=== PATIENT | female | born 1935 | race Caucasian/White ===

== ENCOUNTER 2016-12-06 11:21 | Emergency (ER) | payer MEDICARE, MEDICAID ==
[2016-12-06 13:21] VITALS: BP 139/70
[2016-12-06] MEDS ORDERED: Ibuprofen TAB* 600 MG PO ONE (14:11)
--- NOTE | 2016-12-06 14:25 | UC ---
Hand/Wrist HPI - HPI Summary HPI Summary: NURSE NOTE:pt has dementia, last night she became upset because of loosing the TV remote and punched a door with right hand and sustained a laceration. pt also has a swollen, painfull left wrist. not able to acertain how or why. pt has a hx of a temper when frustrated. HPI: 81 female presents complaining of right hand pain and laceration after punching a wall last night around 7pm 12/05/16. She state she has a temper and got mad that she lost the TV remote. She has had pain in the right hand since the injury. Pt has dementia and temper history. Accompanied by 2 friends/ caretakers. Last night the avulsion was wrapped with gauze and antibiotic/ analgesic ointment was applied. She has not taken any medication for the pain/ swelling. Admits to swelling, redness and deformity. She also states she has pain in her left wrist that has been bothering her however she noticed swelling and erythema that started this morning. She can not recall how it happened or why it hurts. She denies numbness, tingling of both wrists/hands. Denies elbow and shoulder pain trauma. Did not hit her head or fall. Denies difficulty breathing and chest pain. - History Of Current Complaint Chief Complaint: UCTrauma Stated Complaint: HAND COMPLAINT Time Seen by Provider: 12/06/16 14:00 Hx Obtained From: Patient, Family/Weigher Production ?: No Mechanism Of Injury: punching a wall Onset/Duration: Sudden Onset Severity Initially: Moderate Severity Currently: Moderate Pain Intensity: 7 Pain Scale Used: 0-10 Numeric Character Of Pain: Aching, Throbbing, Stiffness Aggravating Factor(s): Movement Alleviating: Nothing Associated Signs And Symptoms: Positive: Swelling, Redness, Bruising. Negative : Numbness/Tingling Related History: Dominant Hand Right - Allergies/Home Medications Allergies/Adverse Reactions: Allergies Allergy/AdvReac Type Severity Reaction Status Date / Time No Known Allergies Allergy Verified 12/06/16 12:00 Home Medications: Home Medications Sertraline* [Zoloft*] 25 mg PO DAILY 12/06/16 [History Confirmed 12/06/16] PMH/Surg Hx/FS Hx/Imm Hx Endocrine History Of: Reports: Diabetes Cardiovascular History Of: Reports: Cardiac Disorders - cardimyopathy/ischemic heart disease/aortic valve disorder, Hypertension, Pacemaker/ICD Denies: Congestive Heart Failure GI/ History Of: Reports: Gall Bladder Disease Denies: Renal Disease Neurological History Of: Reports: Dementia - Surgical History Surgical History: Yes Surgery Procedure, Year, and Place: aortic valve; FACIAL SURGURY-29 YRS AGO. pacemaker - Family History Known Family History: Positive: Unknown - Social History Alcohol Use: None Substance Use Type: None Smoking Status (MU): Never Smoked Tobacco - Immunization History Most Recent Influenza Vaccination: never Most Recent Tetanus Shot: unk Most Recent Pneumonia Vaccination: never Review of Systems Constitutional: Negative Skin: Other - laceration/avulsion of right dorsal hand Eyes: Negative ENT: Negative Respiratory: Negative Cardiovascular: Negative Gastrointestinal: Negative Genitourinary: Negative Motor: Decreased ROM Neurovascular: Negative Musculoskeletal: Arthralgia, Decreased ROM - both left wrist and right hand at 4 /5th PIP joint., Edema, Myalgia All Other Systems Reviewed And Are Negative: Yes Physical Exam Triage Information Reviewed: Yes Appearance: Well-Appearing, No Pain Distress, Well-Nourished Vital Signs: Initial Vital Signs Temp 97.5 F 12/06/16 11:53 Pulse 68 12/06/16 11:53 Resp 18 12/06/16 11:53 BP 122/66 12/06/16 11:53 Pulse Ox 98 12/06/16 11:53 Vital Signs Reviewed: Yes Eyes: Positive: Conjunctiva Clear ENT Exam: Normal Dental Exam: Normal Neck: Positive: Supple, Nontender, No Lymphadenopathy Respiratory: Positive: Chest non-tender, Lungs clear, Normal breath sounds, No respiratory distress Cardiovascular: Positive: RRR - pacemaker present, No Murmur, Pulses Normal, Brisk Capillary Refill - b/l <2 seconds Abdominal Exam: Normal Musculoskeletal: Positive: Strength Limited @ - due to pain of right hand and left wrist. 3/5, ROM Limited @ - slight limitations with movement of right 4th and 5th digit. Normal ROM of right wrist and hand. Slight limitation with flexion/extension and internal/external rotation of left wrist due to pain., Edema @ - 4th/5th digit of right hand, left wrist edema and erythema. tenderness on palpation of medial ulnar side of left wrist and tender on palpation of right 4th/5th digit of PIP and hand. Sensation and circulation intact. No forearm or elbow tenderness on palpation. No step-off, crepitus or deformity noted. Neurological Exam: Normal - reflexes intact. Psychological Exam: Normal Skin: Positive: Other - ~4cm avulsion skin flap noted on right 4/5th PIP joints on dorsal side of hand. No FB noted. minimal bleeding, well approximated v- shape. ecchymosis noted on right 4/5th digits none on left wrist. Procedures - Laceration/Wound Repair 1 Location: Other - right dorsal hand 4/5th digit Description: Linear - v- shape, well approximated skin avulsion right dorsal hand Betadine Prep?: No Irrigated w/ Saline (ccs): 50 Laceration/Wound Explored: clean, no foreign body removed Closure: Skin Adhesive - xero-form 2x2", SteriStrips - 3 Sterile Dressing Applied?: Yes - wrapped with gauze, kerlex Diagnostics - Radiology right hand x-ray Xray Interpretation: No Acute Changes - 1. OSTEOPENIA. 2. BILATERAL OSTEOARTHRITIS. 3. NO ACUTE OSSEOUS INJURY. THE DEGREE OF OSTEOPENIA MAY MAKE A NONDISPLACED FRACTURE RADIOGRAPHICALLY OCCULT. IF SYMPTOMS PERSIST, RECOMMEND REPEAT IMAGING. Radiology Interpretation Completed By: Radiologist left hand x-ray Xray Interpretation: No Acute Changes - IMPRESSION: 1. OSTEOPENIA. 2. BILATERAL OSTEOARTHRITIS. 3. NO ACUTE OSSEOUS INJURY. THE DEGREE OF OSTEOPENIA MAY MAKE A NONDISPLACED FRACTURE RADIOGRAPHICALLY OCCULT. IF SYMPTOMS PERSIST, RECOMMEND REPEAT IMAGING. Radiology Interpretation Completed By: Radiologist Hand/Wrist Course/Dx - Course Course Of Treatment: x-rays of both hands/wrists were obtained to rule out any fractures. Both were negative for any acute injuries. Avulsion was cleaned, steri-strip and Xeroform applied and dressed with gauze/kerlex. Ibuprofen and ice given for pain and inflammation. Her last tetanus was in 2012 and does not need it updated at this time. Was instructed to keep dressing on for the next 24 hours and do not get it wet. was told they could change gauze/dressing but to leave steri strip and xeroform alone until follow up with PCP or it falls off on its own. Follow up en-couraged to further work up chronic left wrist pain and swelling. - Differential Dx/Diagnosis Differential Diagnosis/HQI/PQRI: Contusion, Dislocation, Foreign Body, Fracture , Sprain, Strain Provider Diagnoses: Contusion Right Hand, skin avulsion right hand Discharge - Discharge Plan Condition: Stable Disposition: HOME Patient Education Materials: Skin Avulsion (ED), Contusion in Adults (ED) Referrals: Charles Landeros MD [Primary Care Provider] - Additional Instructions: Take OTC Ibuprofen 200 or 400mg for the next day or so with food while symptoms persist. You may also ice and elevate the area. Follow up with your primary care doctor to have skin wound re-evaluated to ensure proper healing within the next 5-7 days and to have further work-up done for the your chronic left wrist pain. IF symptoms worsen or you develop signs of infection, fever, chills, increasing swelling, redness, numbness/tingling or loss of circulation please seek medical attention immediately. Keep dressing dry and clean. Do not change gauze until 28-48 hours. Leave yellow gauze (xero-form) and steri-strips on until they fall off or you primary care doctor removes them.
--- NOTE | 2016-12-06 14:47 | RAD ---
HISTORY: Right hand trauma, left wrist and hand pain and swelling COMPARISONS: None VIEWS: 8, Frontal, lateral, and oblique views of the left hand and of the right hand FINDINGS: Right: BONE DENSITY: There is diffuse osteopenia. BONES: There is no displaced fracture. JOINTS: There is moderate osteoarthritis of the interphalangeal joints. ALIGNMENT: There is no dislocation. The alignment is anatomic. SOFT TISSUES: Unremarkable. Left: BONE DENSITY: There is diffuse osteopenia. BONES: There is no displaced fracture. JOINTS: There is osteoarthritis most pronounced at the first second and third interphalangeal joints. ALIGNMENT: There is no dislocation. The alignment is anatomic. SOFT TISSUES: Unremarkable. OTHER FINDINGS: None. IMPRESSION: 1. OSTEOPENIA. 2. BILATERAL OSTEOARTHRITIS. 3. NO ACUTE OSSEOUS INJURY. THE DEGREE OF OSTEOPENIA MAY MAKE A NONDISPLACED FRACTURE RADIOGRAPHICALLY OCCULT. IF SYMPTOMS PERSIST, RECOMMEND REPEAT IMAGING.
== END 2016-12-06 15:31 | disposition home or self-care (01) ==
LOC: UCEAST 11:21
DX: S60.221A Contusion of right hand, initial encounter (principal); S61.411A Laceration without foreign body of right hand, initial encounter; W22.09XA Striking against other stationary object, initial encounter; Y93.9 Activity, unspecified; Y92.009 Unspecified place in unspecified non-institutional (private) residence as the place of occurrence of the external cause; M25.532 Pain in left wrist; I42.9 Cardiomyopathy, unspecified; I25.9 Chronic ischemic heart disease, unspecified; Z95.0 Presence of cardiac pacemaker
CPT/HCPCS: 99211; A9270-GY; G0463

== ENCOUNTER 2017-01-04 14:13 | Emergency (ER) | payer MEDICARE, MEDICAID ==
[2017-01-04 14:41] VITALS: BP 140/67
--- NOTE | 2017-01-04 15:11 | UC ---
Upper Extremity HPI - HPI Summary HPI Summary: Hit L arm against table last night, sustained small flap skin tear, approx 2cm x 2cm. Skin is in place, pt is brought by family members who are mainly concerned about the area getting cleaned out well and to document the injury. - History of Current Complaint Chief Complaint: UCLaceration Stated Complaint: WOUND TO ARM Time Seen by Provider: 01/04/17 14:57 Hx Obtained From: Patient Hx Last Menstrual Period: menapause ?: No Onset/Duration: Sudden Onset Severity Initially: Mild Severity Currently: Mild Character: Dull Alleviating Factor(s): Nothing Associated Signs And Symptoms: Positive: Redness - Allergies/Home Medications Allergies/Adverse Reactions: Allergies Allergy/AdvReac Type Severity Reaction Status Date / Time No Known Allergies Allergy Verified 12/06/16 12:00 PMH/Surg Hx/FS Hx/Imm Hx Endocrine History Of: Reports: Diabetes Cardiovascular History Of: Reports: Cardiac Disorders - cardimyopathy/ischemic heart disease/aortic valve disorder, Hypertension, Pacemaker/ICD Denies: Congestive Heart Failure GI/ History Of: Reports: Gall Bladder Disease Denies: Renal Disease Neurological History Of: Reports: Dementia - Surgical History Surgical History: Yes Surgery Procedure, Year, and Place: aortic valve; FACIAL SURGURY-29 YRS AGO, cabg. pacemaker - Family History Known Family History: Positive: Unknown - Social History Occupation: Retired Lives: Alone Alcohol Use: None Substance Use Type: None Smoking Status (MU): Never Smoked Tobacco - Immunization History Most Recent Influenza Vaccination: never Most Recent Tetanus Shot: 4 year ago Most Recent Pneumonia Vaccination: never Review of Systems Constitutional: Negative Skin: Other - skin tear L arm Eyes: Negative ENT: Negative Respiratory: Negative Cardiovascular: Negative Gastrointestinal: Negative Genitourinary: Negative Motor: Negative Neurovascular: Negative Musculoskeletal: Negative Neurological: Negative Psychological: Negative All Other Systems Reviewed And Are Negative: Yes Physical Exam Triage Information Reviewed: Yes Appearance: Well-Appearing, No Pain Distress, Well-Nourished Vital Signs: Initial Vital Signs Temp 97.1 F 01/04/17 14:27 Pulse 60 01/04/17 14:27 Resp 18 01/04/17 14:27 BP 140/67 01/04/17 14:27 Pulse Ox 99 01/04/17 14:27 Vital Signs Reviewed: Yes Eye Exam: Normal, Other - pupils constricted consistent with age Eyes: Positive: Conjunctiva Clear ENT Exam: Normal ENT: Positive: Normal ENT inspection, Hearing grossly normal, Pharynx normal, TMs normal Dental Exam: Normal Neck exam: Normal Neck: Positive: Supple, Nontender, No Lymphadenopathy Respiratory Exam: Normal Respiratory: Positive: Chest non-tender, Lungs clear, Normal breath sounds, No respiratory distress, No accessory muscle use Cardiovascular Exam: Normal Cardiovascular: Positive: RRR, No Murmur Musculoskeletal Exam: Normal Neurological Exam: Normal Psychological Exam: Normal Skin Exam: Other - 2cm x 2cm flap skin tear, skin well-approximated. ~1cm halo of surrounding erythema Upper Extremity Course/Dx - Differential Dx/Diagnosis Provider Diagnoses: abrasion L arm Discharge - Discharge Plan Condition: Stable Disposition: HOME Patient Education Materials: Skin Tear (ED) Referrals: Charles Landeros MD [Primary Care Provider] - If Needed Additional Instructions: Keep the area bandaged at all times until it is no longer sore and is not leaving any drainage on your bandages. Apply a thin layer of vaseline or antibiotic ointment under a bandage, followed by rolled gauze. Change your bandage every other day.
== END 2017-01-04 15:27 | disposition home or self-care (01) ==
LOC: UCEAST 14:13
DX: S40.812A Abrasion of left upper arm, initial encounter (principal); W22.03XA Walked into furniture, initial encounter; Y93.9 Activity, unspecified; Y92.9 Unspecified place or not applicable
CPT/HCPCS: 99212; G0463

== ENCOUNTER 2017-01-20 12:57 | Emergency (ER) | payer MEDICARE, MEDICAID ==
[2017-01-20 13:25] VITALS: BP 135/66
--- NOTE | 2017-01-20 15:32 | UC ---
Liz Dash Rebecca, scribed for Karen Lerma MD on 01/20/17 at 1415 . Head Injury HPI - HPI Summary HPI Summary: Pt is a 81 y/o F who present to [facility] s/p fall last night and LOC. Unclear if the LOC resulted in the fall or if the fall resulted in LOC. Partner heard a crash in the bedroom last night approx 19:30. Tried to get to the pt, but couldn't b/c she was in the way of the door. After a few minutes the door opened. Spontaneously regained loc, but length of time out is unclear. Did not want to seek medical attention last night. Pt's partner drove her to her daughter's house today, and daughter convinced her to get checked. 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 Mental status similar to baseline, "head nod" have worsened and that she was "ulloa around the mouth". Daughter notes swelling on head and additionally notes a contusion to the pt's back. Pain level unclear. Daughter confirms it is normal for pt to be unsure of the date, time. - History Of Current Complaint Chief Complaint: UCHeadInjury Stated Complaint: FELL-HIT HEAD Time Seen by Provider: 01/20/17 14:11 Hx Obtained From: Patient, Family/[employer] - Daughter Hx Last Menstrual Period: menapause Onset/Duration: Sudden Onset Severity Currently: None Pain Intensity: 0 Pain Scale Used: 0-10 Numeric Associated Signs And Symptoms: Positive: LOC Duration Unknown, Other - worsened ataxia and "head nod"; "ulloa around the mouth"; contusion to the back - Allergies/Home Medications Allergies/Adverse Reactions: Allergies Allergy/AdvReac Type Severity Reaction Status Date / Time No Known Allergies Allergy Verified 01/20/17 15:10 PMH/Surg Hx/FS Hx/Imm Hx Previously Healthy: No - hx sycope / presyncope w/u February 2016. Denies dm. + hx hyperglycemia. Endocrine History Of: Comment Only: Diabetes - hypogylcemia Cardiovascular History Of: Reports: Cardiac Disorders - cardiomyopathy/ischemic heart disease/aortic valve disorder, Hypertension, Pacemaker/ICD Denies: Congestive Heart Failure GI/ History Of: Reports: Gall Bladder Disease Denies: Renal Disease Neurological History Of: Reports: Dementia - Surgical History Surgical History: Yes Surgery Procedure, Year, and Place: aortic valve; FACIAL SURGURY-29 YRS AGO, cabg. pacemaker - Family History Known Family History: Positive: Hypertension - Social History Alcohol Use: None Substance Use Type: None Smoking Status (MU): Never Smoked Tobacco - Immunization History Most Recent Influenza Vaccination: never Most Recent Tetanus Shot: 4 year ago Most Recent Pneumonia Vaccination: never Review of Systems Constitutional: Negative Skin: Other - see hpi Eyes: Negative ENT: Negative Respiratory: Negative Cardiovascular: Negative Gastrointestinal: Negative Genitourinary: Negative Motor: Negative Neurovascular: Negative Musculoskeletal: Negative Neurological: Other - Worsened ataxia and "head nod," positive LOC Psychological: Negative All Other Systems Reviewed And Are Negative: Yes Physical Exam Triage Information Reviewed: Yes Appearance: Well-Nourished - sitting up in chair, conversing easily. Vital Signs: Initial Vital Signs Temp 96.9 F 01/20/17 13:16 Pulse 64 01/20/17 13:16 Resp 16 01/20/17 13:16 BP 135/66 01/20/17 13:16 Pulse Ox 99 01/20/17 13:16 Vital Signs Reviewed: Yes Eye Exam: Normal - perrla eomi grossly intact. + bilat arcus senilus ENT Exam: Normal Neck: Positive: Supple - supple for age. + arthritic changes, Nontender Respiratory Exam: Normal Respiratory: Positive: Chest non-tender, Lungs clear, Normal breath sounds, No respiratory distress, No accessory muscle use Cardiovascular Exam: Normal Cardiovascular: Positive: RRR, No Murmur, Pulses Normal, Brisk Capillary Refill Abdominal Exam: Normal Abdomen Description: Positive: Nontender, No Organomegaly, Soft Bowel Sounds: Positive: Present Musculoskeletal Exam: Normal Musculoskeletal: Positive: Other: - Mild tenderness in the mid-thoracic region R post back contusion approx 6cm diam irregular. No crepitus. No cvat No hip tenderness to pressure. Able to stand up w/o pain c/o. Neurological Exam: Normal - Nonfocal, grossly intact Psychological Exam: Normal - COnversing easily and appropriately Ox person, place, partial time (normal per daughter), not oriented to / doesn't recall event. Skin: Positive: Other - Ecchymosis on the R posterior chest, about 6 cm diameter , irregularly shaped; 4 cm contusion and swelling in the L parietal area Head Injury Course/Dx - Course Course Of Treatment: No new problems in CCC. Bld glucose ok. To ED for further evaluation and management of LOC / head injury / back injury. Pt at first seems reluctant but then stood up and put on her coat and said let's go. Does not want to go to ED via ems, albeit this was offered and encouraged. EKG will be done in the ED, pt is ready to go. Spoke with Rosamaria Disla NP at ED. Pt and claudehter were given the opportunity to ask questions, to which I answered to the best of my ability. Daughter is driving to the ED. - Differential Dx/Diagnosis Provider Diagnoses: Head injury. Back injury. LOC / possible syncope Discharge - Discharge Plan Condition: Stable Disposition: TRANS HIGHER LVL OF CARE FAC Referrals: Charles Landeros MD [Primary Care Provider] - The documentation as recorded by the Liz nelson Rebecca accurately reflects the service I personally performed and the decisions made by me, Karen Lerma MD.
== END 2017-01-20 14:48 | disposition short-term general hospital (02) ==
LOC: UCEAST 12:57
DX: S06.9X9A Unspecified intracranial injury with loss of consciousness of unspecified duration, initial encounter (principal); S20.221A Contusion of right back wall of thorax, initial encounter; W18.30XA Fall on same level, unspecified, initial encounter; Y92.012 Bathroom of single-family (private) house as the place of occurrence of the external cause; I25.5 Ischemic cardiomyopathy; I10 Essential (primary) hypertension; Z95.810 Presence of automatic (implantable) cardiac defibrillator; Z95.2 Presence of prosthetic heart valve; K82.9 Disease of gallbladder, unspecified
CPT/HCPCS: 99202; G0463

== ENCOUNTER 2017-01-20 15:02 | Observation (INO) | payer MEDICARE, MEDICAID ==
[2017-01-20 15:51] LABS: Hematocrit 44 % (35-47); Hemoglobin 14.5 g/dl (12.0-16.0); Mean Corpuscular HGB Conc 33 g/dl (31-36); Mean Corpuscular Hemoglobin 30 pg (27-31); Mean Corpuscular Volume 91 fL (80-97); Mean Platelet Volume 9 um3 (7.4-10.4); Red Blood Count 4.83 10^6/ul (4.0-5.4); Red Cell Distribution Width 15 % (10.5-15); White Blood Count 8.8 10^3/ul (3.5-10.8)
[2017-01-20 16:03] LABS: Urine Bacteria 1+ (Absent); Urine Bilirubin Negative (Negative); Urine Glucose Negative (Negative); Urine Nitrite Negative (Negative)
[2017-01-20 16:07] LABS: ALT 7 U/L (7-52); Albumin 3.9 g/dL (3.2-5.2); Alkaline Phosphatase 70 U/L (34-104); BUN/Creatinine Ratio 17.7 (8-20); Blood Urea Nitrogen 11 mg/dL (6-24); CO2 Carbon Dioxide 25 mmol/L (22-32); Calcium 9.5 mg/dL (8.6-10.3); EGFR African American 119.4 (>60); EGFR Non-African American 92.9 (>60); Globulin 3.2 g/dL (2-4); Glucose 92 mg/dL (70-100); Total Protein 7.1 g/dL (6.4-8.9)
[2017-01-20 16:08] LABS: Troponin I 0.01 ng/mL (<0.04)
[2017-01-20 16:17] LABS: Chloride 106 mmol/L (101-111); Sodium 138 mmol/L (133-145)
[2017-01-20] MEDS ORDERED: cefTRIAXone(*) 1 GM in NS 0.9% 50 ML* 50 ML IVPB ONE (16:43)
[2017-01-20 16:54] LABS: TSH (Thyroid Stimulating Horm) 0.68 mcIU/mL (0.34-5.60)
[2017-01-20 17:08] LABS: Magnesium 2.4 mg/dL (1.9-2.7)
[2017-01-20] MEDS ORDERED: Ondansetron INJ* 2 MG/ML VIAL IV PRN (17:21)
[2017-01-20] MEDS ORDERED: Acetaminophen TAB* 325 MG PO PRN (17:21)
[2017-01-20] MEDS ORDERED: Potassium Chloride LIQUID* 20 MEQ PACKET PO ONE (17:32)
--- NOTE | 2017-01-20 17:44 | RAD ---
INDICATION: Syncope and right shoulder pain after a fall COMPARISON: Chest x-ray dated January 14, 2015 TECHNIQUE: Single AP view of the chest and 3 views of the right shoulder was obtained. FINDINGS: Unchanged from the previous x-rays is a right upper chest to lead cardiac pacemaker and sternotomy wires overlying the mediastinum. There is mild cardiomegaly to a similar degree as the previous chest x-ray. There is coarse atherosclerotic calcification overlying the arch of the aorta. The lungs are grossly clear. There is no evidence of a large pleural effusion. Mild degenerative changes of the right shoulder include narrowing of the glenohumeral joint as well as narrowing of the acromioclavicular joint with marginal osteophyte formation. IMPRESSION: 1. No radiographic evidence for acute cardiopulmonary abnormality on this single AP view chest x-ray. 2. Mild degenerative changes of the right shoulder without acute fracture or dislocation.
--- NOTE | 2017-01-20 17:50 | RAD ---
INDICATION: Syncope COMPARISON: Most recent comparison head CT is dated May 19, 2016 TECHNIQUE: Contiguous axial sections of the brain were obtained from the skull base to the vertex without contrast. FINDINGS: On the lateral view garage door hanger image there is lucency overlying the anterior mandible with a sclerotic rim. The ventricles, cisterns and sulci exhibit symmetrical involutional changes similar in appearance to the previous head CT. There is mild periventricular and subcortical white matter hypoattenuation most consistent with chronic microvascular disease. The dyson-white matter differentiation is adequately maintained and there is no sulcal effacement. No significant focal abnormality or mass effect is present. There is no evidence for intracranial hemorrhage. There is coarse calcified atherosclerosis at the bilateral petrous carotid arteries and vertebral arteries. No significant focal osseous abnormality is present. The visualized portion of the paranasal sinuses and mastoid air cells appear clear. IMPRESSION: 1. Stable chronic findings include involutional changes and evidence of chronic vascular disease. No CT evidence of acute intracranial abnormality. 2. On the lateral garage door hanger image there is a lucent lesion at the anterior mandible with a sclerotic rim. The patient's for prior head CTs, this portion of the mandible out of the field of view so I cannot comment on chronicity. Please correlate to physical examination. On a nonemergent basis this could be independently imaged.
--- NOTE | 2017-01-20 21:12 | HP ---
HISTORY AND PHYSICAL: DATE OF ADMISSION: 01/20/17 PRIMARY CARE PROVIDER: Dr. Landeros. ATTENDING PHYSICIAN WHILE IN THE HOSPITAL: Dr. Haydee Wolfe * (report dictated by Meño Sandoval NP). CHIEF COMPLAINT: 1. Syncope. 2. Fall. HISTORY OF PRESENT ILLNESS: Ms. Quijano is a 81-year-old female patient who has a history of dementia, PTSD, anxiety, depression, and atrial fibrillation, not on anticoagulation. She comes in today stating that last night she was fixing her room, moving her bed, and then suddenly she had an episode where she fainted. She landed next to the door. Her partner who was downstairs heard a thud, came to her aid, found that she was pinned up against the door. She finally made her way into the room. The patient had come to by then and knew where she was, recognized her partner. The patient was put back into bed and she slept throughout the night. The partner checked on her frequently throughout the night. The patient said that she did not have any chest pain or shortness of breath prior to or after the fall. There have been no recent changes in medications. She only takes Zoloft. The patient denies having any recent chills, fevers, abdominal pain, or any dysuria or frequency. There has not been any seizure-like activity as well. The significant other was concerned. They went to their friend's house today, and when the patient was walking up the steps, they noted that her gait was very off and she was very, in their words, wobbly. In addition to this, it was also noted that she appeared to be short of breath. They convinced the patient to go to the urgent care, who then referred the patient to the emergency room. The patient says now she feels well. She denies feeling dizzy. There were no reports of slurred speech, facial droop, or any weakness to one side. She was evaluated in the ER. It was found that she had UTI and because of the syncopal episode, the hospitalist service was asked to evaluate for admission. PAST MEDICAL HISTORY: Significant for: 1. Dementia. 2. PTSD. 3. Anxiety. 4. Depression. 5. Atrial fibrillation. PAST SURGICAL HISTORY: 1. 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 2. She has had a pacemaker placed. 3. Facial surgery. 4. Hysterectomy. HOME MEDICATIONS: Include Zoloft 25 mg daily. ALLERGIES TO MEDICATIONS: Include no known drug allergies. FAMILY HISTORY: Her mother lives at age 99, has a history of dementia. Father had a history of heart disease. SOCIAL HISTORY: She does not smoke, does not drink. Surrogate decision maker is her partner. REVIEW OF SYSTEMS: There is no documented fever. She denied having any significant weight change. There was no double vision. There is no ear discharge. She denies having any rhinorrhea. No sore throat. No thyroid enlargement. She denied having any chest pain. No orthopnea, no nocturnal dyspnea. There is no abdominal pain. No nausea, no vomiting. No dysuria, no frequency. No seizure, no loss of consciousness. No pruritus and no skin ulcerations. Review of 14 systems completed, all others negative. PHYSICAL EXAMINATION GENERAL: At this time, Ms. Quijano is a 81-year-old female patient. She is sitting in the ER stretcher and does not appear to be in any acute distress. VITAL SIGNS: Reveal blood pressure 150/70, pulse of 56, respirations 18, O2 sat 100%, and temperature 96.9. HEENT: Head is atraumatic and normocephalic. Eyes: EOMs are intact. Sclerae anicteric. Throat: Oral mucosa appears to be moist. No oropharyngeal erythema. NECK: Supple. LUNGS: Clear to auscultation. No wheezes, rales, or rhonchi. HEART: Sounds S1, S2. Regular rate and rhythm. No murmurs, rubs, or gallops. ABDOMEN: Soft, flat, and nontender. Bowel sounds present. EXTREMITIES: Pulses 2+ throughout. Able to move all 4 extremities with 5/5 strength. NEUROLOGIC: The patient is awake, alert, and oriented x3. Tongue midline. Photovoltaic Installer are equal. No gross focal deficits. SKIN: Grossly intact. DIAGNOSTIC STUDIES/LAB DATA: Today revealed WBC of 8.8, RBC of 4.83, hemoglobin 14.5, hematocrit of 44, and a platelet of 253. The sodium was 138, potassium was 3.2, the chloride was 106, bicarb 25, BUN 11, creatinine of 0.62, glucose of 92, lactate 1.2, calcium 9.4, total mag 2.4. Total bilirubin 0.8, AST 17, ALT 7, alk phos 70. Troponin 0.01. Albumin 3.9. Urine showed 1+ protein, trace ketones, 1+ blood, 3+ leukocyte esterase, 1+ wbc, 1+ bacteria. She had an EKG obtained today as well which showed an atrioventricular paced rhythm. She had a brain CT obtained, official read is pending. I did not see any obvious acute hemorrhage. Chest x-ray was obtained today which did show cardiomegaly. No infiltrates or effusions were noted. She had a shoulder x-ray that I reviewed with Dr. Rajput, did not appreciate any acute fractures. Old medical records were reviewed. ASSESSMENT AND PLAN: Ms. Quijano is a 81-year-old female patient coming in to the ER today with complaints of syncopal episode. Hospitalist service was asked to evaluate for admission. She will be admitted under observation status for: 1. Syncope: At this point, I will go ahead and place the patient on telemetry. We will get orthostatic blood pressures. In addition to this, we will place the patient on telemetry. We will check an echo and interrogate the pacemaker and I will cycle her troponins. 2. Urinary tract infection: I will place her on Rocephin and await cultures. 3. Depression, anxiety, and posttraumatic stress disorder: Continue the patient's Zoloft. 4. Atrial fibrillation: She appears to be in a paced rhythm at this point. She refused blood thinners in the past. We will monitor and she can follow with her card doffer. 5. Dementia: Continue with supportive care. 6. DVT prophylaxis: She is high risk. She will be placed on heparin subcu. 7. Code status: She is a DNR. 8. Fluids, electrolytes, and nutrition: She can have a heart-healthy diet and I will also replace her potassium as it was slightly low. TIME SPENT: On the admission was 60 minutes; greater than half the time was spent [id number] with the patient obtaining my history and physical, other half the time spent going over the plan of care with the patient and implementing plan of care. I did discuss the plan of care with my attending, Dr. Wolfe; she is in agreement. MEÑO SANDOVAL NP CC: Dr. Landeros * [id number]/[facility] #: [id number] KIRTI
[2017-01-20] MEDS: Heparin VIAL(*) 5000 UNITS/ML VIAL (FIVE THOUSAND) SUBCUT SCH (22:13)
--- NOTE | 2017-01-21 00:49 | PN ---
Progress Note - Progress Note Note: Nursing called requesting evaluation for Ms Quijano who appears confused, agitated, & wanting to leave AMA. Upon my arrival, she is pacing at the bedside. I inform her I will be performing an assessment of her ability to understand and process information in order to determine if she is currently able to reasonably make this decision. It quickly becomes clear that she is quite confused. She cannot state the year or month. She initially states she is here for a heart problem, but cannot clarify this. She does after several minutes come to the statement that she passed out at home. She states she wants to leave because she cannot rest here, but adamantly refuses any medication to assist with sleep. She wishes to call her neighbor who is a horse doctor here just shy of 0100 in order to stay the remainder of the night with her. She is very tangential in her answers at other times stating she needs to get home to cook healthy meals for her partner and because her partner has a dental appointment. She cannot follow a singular train of thought for more than 1 to 2 sentences before wandering or becoming distracted. I informed her that at this time I do not feel it is safe or in her best interest to leave the hospital and that currently she does not have the ability to make this decision. She was advised that, if necessary, medications and/or physical restraints would be used if she became combative and requested she not do so. At that point, she sat down in bed and stated, "Well, you've convinced me." She has a history of dementia and appears to be sundowning. I informed her nurse and the charge nurse that she lacked competence to sign out AMA and is considered a flight risk. As such, she will be placed on a 1:1.
[2017-01-21] MEDS: Heparin VIAL(*) 5000 UNITS/ML VIAL (FIVE THOUSAND) SUBCUT SCH ×2 (05:12→14:26)
[2017-01-21 06:25] LABS: Hematocrit 40 % (35-47); Hemoglobin 13.3 g/dl (12.0-16.0); Mean Corpuscular HGB Conc 33 g/dl (31-36); Mean Corpuscular Hemoglobin 30 pg (27-31); Mean Corpuscular Volume 90 fL (80-97); Mean Platelet Volume 8 um3 (7.4-10.4); Red Blood Count 4.42 10^6/ul (4.0-5.4); Red Cell Distribution Width 15 % (10.5-15); White Blood Count 7.8 10^3/ul (3.5-10.8)
[2017-01-21 06:41] LABS: BUN/Creatinine Ratio 16.4 (8-20); Calcium 8.8 mg/dL (8.6-10.3); EGFR African American 137.1 (>60); EGFR Non-African American 106.6 (>60); Potassium 3.3 mmol/L (3.5-5.0)
[2017-01-21] MEDS: Sertraline* 25 MG TAB PO SCH ×2 (09:28→14:28)
[2017-01-21] MEDS ORDERED: Potassium Chlor TAB* 20 MEQ TAB.ER PO ONE (13:11)
--- NOTE | 2017-01-21 15:05 | ECHO ---
Patient: JANIE IBRAHIM [facility] Rec#: [id number] : 1935 Date: 01/21/2017 Age: 81y Height: 167.6 cm / 66.0 in Weight: 74.8 kg / 164.9 lbs Sex: F BSA: 1.84 Room#: [facility] Admit Date#: 01/20/2017 Type: Inpatient Referring: Meño Sandoval NP Reading: Andi Fischer MD Felt Hat Pouncing Operator Hand: Montse Bell RN RDCS CC: Charles Landeros MD Transthoracic Echocardiogram Indication: Syncope BP: 132/53 HR: 67 Rhythm: Paced Findings History: Bovine AVR, pacemaker, A. fib, former smoker, dementia, PTSD Technical Comments: The study is technically limited due to patient body habitus. The study is technically limited due to the patient's smoking history. Completed at 1450. Left Ventricle: The left ventricular chamber size is normal.False tendon present. Moderate concentric left ventricular hypertrophy is observed. There is global hypokinesis of the left ventricle with minor regional variation. There is moderately decreased left ventricular systolic function. The estimated ejection fraction is 35-40%. There is abnormal ventricular septal wall motion consistent with right ventricular pacemaker. Abnormal left ventricular diastolic filling is observed, consistent with impaired relaxation. Left Atrium: The left atrium is mildly dilated. Right Ventricle: The right ventricular chamber size and systolic function are within normal limits. A pacemaker wire is visualized in the right ventricle. Right Atrium: The right atrial cavity size is normal. A pacemaker wire is visualized in the right atrium. Aortic Valve: There is a trace of aortic regurgitation. A bovine bio-prosthetic aortic valve is present. The bio-prosthetic aortic valve appears to be functioning normally. Mitral Valve: Moderate mitral annular calcification present. The mitral valve leaflets are mildly thickened. Mitral valve leaflet mobility is mildly restricted. Mild subvalvular thickening of the mitral valve is visualized.Focal chordal thickening. There is moderate to severe mitral regurgitation. Extensive central jet reaches the apical portion of the LA. There is borderline mitral stenosis. Tricuspid Valve: The tricuspid valve leaflets are normal. There is mild tricuspid regurgitation. There is evidence of mild pulmonary hypertension. Pulmonic Valve: The pulmonic valve structure is not well visualized. There is a trace pulmonic regurgitation. There is no pulmonic stenosis. Pericardium: There is no significant pericardial effusion. A pericardial fat pad is visualized. Aorta: There is no dilatation of the ascending aorta. There is no dilatation of the aortic arch. There is no dilation of the aortic root. Pulmonary Artery: The main pulmonary artery is not well visualized. Venous: The venous system is not well visualized. The inferior vena cava is not visualized. Conclusions The study is technically suboptimal due to patient body habitus. Moderate concentric left ventricular hypertrophy is observed. There is global hypokinesis of the left ventricle with minor regional variation. There is moderately decreased left ventricular systolic function. The estimated ejection fraction is 35-40%. There is abnormal ventricular septal wall motion consistent with right ventricular pacemaker. Abnormal left ventricular diastolic filling is observed, consistent with impaired relaxation. The left atrium is mildly dilated. A bovine bio-prosthetic aortic valve is present. The bio-prosthetic aortic valve appears to be functioning normally. Moderate mitral annular calcification present. The mitral valve leaflets are mildly thickened. Mitral valve leaflet mobility is mildly restricted. There is moderate mitral regurgitation. There is moderate to severe mitral regurgitation. There is an extensive central jet which reaches the apical portion of the LA. There is borderline mitral stenosis. There is mild tricuspid regurgitation. There is evidence of mild pulmonary hypertension. Prior echo of 5.19.16 not available at present. Measurements Name Value Normal Range RVDdMajor (2D) 3.2 cm (2.2 - 4.4) RAd ISD 4CH 4.4 cm (3.4 - 4.9) RA (A4C)W 3.7 cm (2.9 - 4.6) IVSd (2D) 1.4 cm (0.6 - 1) LVPWd (2D) 1.4 cm (0.6 - 1) LVIDd (2D) 4.8 cm (3.6 - 5.4) LVIDs (2D) 3.5 cm - LV FS (2D) 26 % (25 - 45) Aortic Annulus 1.9 cm (1.4 - 2.6) Ao root diameter (2D) 2.8 cm (2.1 - 3.5) Ascending Ao 3.2 cm (2.1 - 3.4) Aortic arch 2.6 cm (1.8 - 3.4) LA dimension (AP) 2D 4.2 cm (2.3 - 3.8) LAd ISD 4CH 5.4 cm (2.9 - 5.3) LA ISD 4CH W 3.9 cm (2.5 - 4.5) Name Value Normal Range LA ESV SP 4CH (A/L) 57 ml - LA ESV SP 2CH (A/L) 89 ml - LA ESV BP (A/L) 73 ml - LA ESV BP (A/L) index 39.5 ml/m2 - LA ESV SP 4CH (MOD) 52 ml - LA ESV SP 2CH (MOD) 86 ml - LV mass (2D) 276.68 g - LV mass (2D) index 150.37 g/m2 - Name Value Normal Range MV E-wave Vmax 1 m/sec - MV deceleration time 191 msec - MV A-wave Vmax 1.3 m/sec - MV E:A ratio 0.8 ratio - LV septal e' Vmax 0.04 m/sec - LV lateral e' Vmax 0.05 m/sec - LV E:e' septal ratio 25 ratio - LV E:e' lateral ratio 20 ratio - Name Value Normal Range AV Vmax 2.5 m/sec - AV VTI 59.9 cm - AV peak gradient 25 mmHg - AV mean gradient 14 mmHg - LVOT diameter 2 cm - LVOT Vmax 1.2 m/sec - LVOT VTI 31.1 cm - LVOT peak gradient 6 mmHg - LVOT mean gradient 4 mmHg - DOI (VTI) 0.52 ratio - DOI (Vmax) 0.49 ratio - LUANA (continuity Vmax) 1.5 cm2 - LUANA (continuity VTI) 1.6 cm2 - SHANNEN Vmax 0.88 m/sec - Name Value Normal Range MV Vmax 1.4 m/sec - MV VTI 40.6 cm - MV peak gradient 8.1 mmHg - MV mean gradient 3.3 mmHg - MV PHT 70 msec - MVA (PHT) 3.1 cm2 - MVA (continuity VTI) 2.4 cm2 - Name Value Normal Range TR Vmax 2.9 m/sec - TR peak gradient 3464 mmHg - RAP 8 mmHg - RVSP 42 mmHg - Name Value Normal Range PV Vmax 0.7 m/sec -
[2017-01-21 16:47] VITALS: BP 124/66
[2017-01-21] MEDS ORDERED: cefTRIAXone VIAL(*) 1,000 MG in NS 0.9% 50 ML* 50 ML IVPB SCH (18:00)
--- NOTE | 2017-01-22 06:13 | DS ---
DATE OF ADMISSION: 01/20/17 DATE OF DISCHARGE: 01/21/17 PRIMARY CARE PROVIDER: Dr. Landeros. PRIMARY DIAGNOSIS: Syncope. SECONDARY DIAGNOSES: Include: 1. Llkw-[id number] dementia. 2. History of posttraumatic stress disorder. 3. Anxiety, depression. 4. History of atrial fibrillation. 5. History of known combined systolic and diastolic heart failure, compensated on no medications. 6. History of permanent pacemaker. 6. History of aortic valve replacement. IMAGING PERFORMED DURING THE HOSPITAL STAY: Include transthoracic echocardiogram. Impression; moderate concentric left ventricular hypertrophy. Global hypokinesis of the left ventricle with minor regional variation. Moderately decreased left ventricular systolic function. Estimated LVEF is 35% to 40 %. Abnormal ventricular septal wall motion consistent with right ventricular pacemaker. Abnormal left ventricular diastolic filling observed. Left atrium is mildly dilated. Bovine bioprosthetic aortic valve is present and appears to be functioning normally. There is moderate mitral annular calcification with mitral valve leaflets mildly thickened. Mitral valve leaflet mobility is mildly restricted. Transthoracic echocardiogram report indicates both moderate and [id number] mitral regurgitation. There is an extensive central jet which reaches the apical portion of the left atrium. Borderline MS, mild CR, and evidence of mild pulmonary hypertension. PERTINENT LABORATORY DATA: Troponin I three consecutive checks, highest is 0.02. PROCEDURES PERFORMED DURING HOSPITAL STAY: Pacemaker interrogation. Functioning normally without any events. HISTORY OF PRESENT ILLNESS AND HOSPITAL COURSE: This is a 81-year-old female with past medical history as outlined in the history of present illness on the day of admission known combined systolic and diastolic congestive heart failure as well as a permanent pacemaker who has been in her usual state of health, had been an episode of loss of consciousness, found by her daughter in her home. There are no antecedent or symptoms after event. She was admitted to the hospitalist service and observed overnight without any events on telemetry. She was paced throughout the course of her hospital stay. Pacemaker was interrogated without any events over the last 48 hours. Urine was notable for leuk esterase, white blood cell, and red blood cell; however, it was noted for additional squamous epithelial cells. She denied any symptoms including dysuria, frequency, or hesitancy. However, given urinalysis and episodes of syncope, she was discharged on ciprofloxacin. She received ceftriaxone in the hospital for one dose. She will complete the course for uncomplicated urinary tract infection as an outpatient. There are no complications with the patient's hospital stay, worsening mitral valve disease in conjunction with dehydration in conjunction with potential urinary tract infection, all possibilities leading to the patient's syncope. FOLLOWUP: 1. Follow urine cultures to completion. 2. Referral to [facility] was made at the time of discharge to follow patient's congestive heart failure and worsening mitral valve disease. 3. No other specific labs or vitals that need followup. Reasons to return to the hospital including but not limited to recurrent or worsening symptoms including loss of consciousness, chest pain, shortness of breath, nausea, vomiting, lightheadedness, loss of consciousness, fevers, chills , and night sweats, any symptoms, inability to obtain or tolerate medications discussed with the patient, she did acknowledge understanding. TIME SPENT: Greater than 60 minutes was spent on discharge of this patient, greater than half was spent [id number] with the patient. CC: Dr. Landeros* [id number]/[facility] #: [id number] KIRTI
--- NOTE | 2017-01-25 11:48 | ED ---
Kamron Dash Michael, scribed for Danelle Rajput MD on 01/20/17 at 1543 . Syncope/Near Syncope - HPI Summary HPI Summary: 81 y/o female was referred to the ED by [facility] after a syncopal episode from a standing position one day ago. The pt's partner was bedside and reports that she was moving furniture when the pt lost consciousness and hit hear right shoulder and head. At the ED, the pt c/o right shoulder pain and a LEE. The pt has no SOB or cough per partner. The PMHx is significant for late onset Alzheimer's, CABG, and hypoglycemia. - History Of Current Complaint Chief Complaint: EDSyncope Time Seen by Provider: 01/20/17 15:32 Hx Obtained From: Patient, Medical Records Hx From Patient Unobtainable Due To: Dementia Onset/Duration: Sudden Onset Timing: Intermittent Episode Lasting Context: Unwitnessed, Loss Of Consciousness Activity At Onset: Exertion Associated Head Trauma: Yes Aggravating Factor(s): Nothing Alleviating Factor(s): Spontaneous Resolution Associated Signs And Symptoms: Negative - SOB and cough., Head Trauma (Recent), Headache, Pain - right shoulder., Other - syncope - Allergies/Home Medications Allergies/Adverse Reactions: Allergies Allergy/AdvReac Type Severity Reaction Status Date / Time No Known Allergies Allergy Verified 01/20/17 15:10 PMH/Surg Hx/FS Hx/Imm Hx Endocrine/Hematology History: Reports: Other Endocrine/Hematological Disorders - hypoglycemia Cardiovascular History: Reports: 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, Hx Hypertension, Hx Pacemaker/ICD Denies: Hx Congestive Heart Failure GI History: Reports: Hx Gall Bladder Disease History: Denies: Hx Renal Disease Sensory History: Reports: Hx Contacts or Glasses - reading glasses Denies: Hx Deafness, Hx Hearing Aid, Hx Hearing Problem, Other Sensory Impairments Opthamlomology History: Reports: Hx Contacts or Glasses - reading glasses Denies: Other Sensory Impairments Neurological History: Reports: Hx Dementia Psychiatric History: Reports: Hx Post Traumatic Stress Disorder, Hx Suicide Attempt, Hx of Violent Episodes Against Others Denies: Hx Eating Disorder - Cancer History Cancer Type, Location and Year: denies - Surgical History Surgery Procedure, Year, and Place: aortic valve; FACIAL SURGURY-29 YRS AGO, cabg. pacemaker Infectious Disease History: No Infectious Disease History: Denies: Hx Clostridium Difficile, Hx of Known/Suspected MRSA, Hx Shingles, Hx Known/Suspected VRSA, Traveled Outside the [place] in Last 30 Days - Family History Known Family History: Negative: Blood Disorder - Social History Occupation: Retired Lives: With Family Alcohol Use: None Substance Use Type: Reports: None Smoking Status (MU): Never Smoked Tobacco Review of Systems Negative: Shortness Of Breath, Cough Positive: Other - right shoulder pain. Positive: Headache, Syncope All Other Systems Reviewed And Are Negative: Yes Physical Exam Triage Information Reviewed: Yes Vital Signs On Initial Exam: Initial Vitals Temp Pulse Resp BP Pulse Ox 96.9 F 56 18 150/70 100 01/20/17 15:10 01/20/17 15:10 01/20/17 15:10 01/20/17 15:10 01/20/17 15:10 Vital Signs Reviewed: Yes Appearance: Positive: Well-Appearing, No Pain Distress Skin: Positive: Warm, Skin Color Reflects Adequate Perfusion, Dry Eyes: Positive: EOMI, YAA ENT: Positive: Pharynx normal, TMs normal Neck: Positive: Supple, Nontender Respiratory/Lung Sounds: Positive: Clear to Auscultation, Breath Sounds Present. Negative: Rales, Rhonchi, Wheezes Cardiovascular: Positive: RRR, Other - no gallops. Negative: Murmur, Rub Abdomen Description: Positive: Nontender, Soft, Other: - no rebound. Negative: Guarding Bowel Sounds: Positive: Present Musculoskeletal: Positive: Strength/ROM Intact. Negative: Edema Left, Edema Right Neurological: Positive: Sensory/Motor Intact, Alert, Oriented to Person Place, Time, CN Intact II-III Psychiatric: Positive: Affect/Mood Appropriate Diagnostics - Vital Signs Vital Signs Temp Pulse Resp BP Pulse Ox 01/20/17 15:10 96.9 F 56 18 150/70 100 - Laboratory Lab Results: Lab Results 01/20/17 01/20/17 01/20/17 Range/Units 15:40 15:40 15:40 WBC 8.8 (3.5-10.8) 10^3/ul RBC 4.83 (4.0-5.4) 10^6/ul Hgb 14.5 (12.0-16.0) g/dl Hct 44 (35-47) % MCV 91 (80-97) fL MCH 30 (27-31) pg MCHC 33 (31-36) g/dl RDW 15 (10.5-15) % Plt Count 253 (150-450) 10^3/ul MPV 9 (7.4-10.4) um3 Neut % (Auto) 64.5 (38-83) % Lymph % (Auto) 25.9 (25-47) % [place] % (Auto) 6.4 (1-9) % Eos % (Auto) 2.0 (0-6) % Baso % (Auto) 1.2 (0-2) % Absolute Neuts (auto) 5.7 (1.5-7.7) 10^3/ul Absolute Lymphs (auto) 2.3 (1.0-4.8) 10^3/ul Absolute Monos (auto) 0.6 (0-0.8) 10^3/ul Absolute Eos (auto) 0.2 (0-0.6) 10^3/ul Absolute Basos (auto) 0.1 (0-0.2) 10^3/ul Absolute Nucleated RBC 0 10^3/ul Nucleated RBC % 0 Sodium 138 (133-145) mmol/L Potassium TNP Chloride 106 (101-111) mmol/L Carbon Dioxide 25 (22-32) mmol/L Anion Gap TNP BUN 11 (6-24) mg/dL Creatinine 0.62 (0.51-0.95) mg/dL Est GFR ( Amer) 119.4 (>60) Est GFR (Non-Af Amer) 92.9 (>60) BUN/Creatinine Ratio 17.7 (8-20) Glucose 92 (70-100) mg/dL Lactic Acid 1.2 (0.5-2.0) mmol/L Calcium 9.5 (8.6-10.3) mg/dL Magnesium TNP Total Bilirubin 0.80 (0.2-1.0) mg/dL AST TNP ALT 7 (7-52) U/L Alkaline Phosphatase 70 (34-104) U/L Troponin I 0.01 (<0.04) ng/mL Total Protein 7.1 (6.4-8.9) g/dL Albumin 3.9 (3.2-5.2) g/dL Globulin 3.2 (2-4) g/dL Albumin/Globulin Ratio 1.2 (1-3) TSH 0.68 (0.34-5.60) mcIU/mL Urine Color Urine Appearance Urine pH (5-9) Ur Specific [place] (1.010-1.030) Urine Protein (Negative) Urine Ketones (Negative) Urine Blood (Negative) Urine Nitrate (Negative) Urine Bilirubin (Negative) Urine Urobilinogen (Negative) Ur Leukocyte Esterase (Negative) Urine WBC (Auto) (Absent) Urine RBC (Auto) (Absent) Ur Squamous Epith Cells (Absent) Urine Bacteria (Absent) Urine Glucose (Negative) 01/20/17 01/20/17 Range/Units 15:45 16:47 WBC (3.5-10.8) 10^3/ul RBC (4.0-5.4) 10^6/ul Hgb (12.0-16.0) g/dl Hct (35-47) % MCV (80-97) fL MCH (27-31) pg MCHC (31-36) g/dl RDW (10.5-15) % Plt Count (150-450) 10^3/ul MPV (7.4-10.4) um3 Neut % (Auto) (38-83) % Lymph % (Auto) (25-47) % [place] % (Auto) (1-9) % Eos % (Auto) (0-6) % Baso % (Auto) (0-2) % Absolute Neuts (auto) (1.5-7.7) 10^3/ul Absolute Lymphs (auto) (1.0-4.8) 10^3/ul Absolute Monos (auto) (0-0.8) 10^3/ul Absolute Eos (auto) (0-0.6) 10^3/ul Absolute Basos (auto) (0-0.2) 10^3/ul Absolute Nucleated RBC 10^3/ul Nucleated RBC % Sodium (133-145) mmol/L Potassium 3.2 L Chloride (101-111) mmol/L Carbon Dioxide (22-32) mmol/L Anion Gap BUN (6-24) mg/dL Creatinine (0.51-0.95) mg/dL Est GFR ( Amer) (>60) Est GFR (Non-Af Amer) (>60) BUN/Creatinine Ratio (8-20) Glucose (70-100) mg/dL Lactic Acid (0.5-2.0) mmol/L Calcium (8.6-10.3) mg/dL Magnesium 2.4 Total Bilirubin (0.2-1.0) mg/dL AST 17 ALT (7-52) U/L Alkaline Phosphatase (34-104) U/L Troponin I (<0.04) ng/mL Total Protein (6.4-8.9) g/dL Albumin (3.2-5.2) g/dL Globulin (2-4) g/dL Albumin/Globulin Ratio (1-3) TSH (0.34-5.60) mcIU/mL Urine Color Melanie Urine Appearance Cloudy Urine pH 5.0 (5-9) Ur Specific [place] 1.023 (1.010-1.030) Urine Protein 1+(30 mg/dl) H (Negative) Urine Ketones Trace H (Negative) Urine Blood 1+ H (Negative) Urine Nitrate Negative (Negative) Urine Bilirubin Negative (Negative) Urine Urobilinogen Negative (Negative) Ur Leukocyte Esterase 3+ H (Negative) Urine WBC (Auto) 1+(6-10/hpf) H (Absent) Urine RBC (Auto) 3+(>10/hpf) H (Absent) Ur Squamous Epith Cells Present H (Absent) Urine Bacteria 1+ H (Absent) Urine Glucose Negative (Negative) Result Diagrams: 01/21/17 06:17 01/21/17 06:17 Lab Statement: Any lab studies that have been ordered have been reviewed, and results considered in the medical decision making process. - Radiology shoulder XR Xray Interpretation: Positive (See Comments) - 1. No radiographic evidence for acute cardiopulmonary abnormality on this single AP view chest x-ray. 2. Mild degenerative changes of the right shoulder without acute fracture or dislocation. Radiology Interpretation Completed By: Radiologist CXR Xray Interpretation: Positive (See Comments) - 1. No radiographic evidence for acute cardiopulmonary abnormality on this single AP view chest x-ray. 2. Mild degenerative changes of the right shoulder without acute fracture or dislocation. Radiology Interpretation Completed By: Radiologist - CT Brain CT CT Interpretation: Positive (See Comments) - 1. Stable chronic findings include involutional changes and evidence of chronic vascular disease. No CT evidence of acute intracranial abnormality. 2. On the lateral temperature control inspector image there is a lucent lesion at the anterior mandible with a sclerotic rim. The patient's for prior head CTs, this portion of the mandible out of the field of view so I cannot comment on chronicity. Please correlate to physical examination. On a nonemergent basis this could be independently imaged. CT Interpretation Completed By: Radiologist - EKG EKG 1520 EKG Interpretation: paced EKG Course/Dx Course Of Treatment: pt with syncopal episode yesterday she and partner went to friends house and pt herself was ataxic and ashen in appearance, here pt is well appearing. Pt does appear to have a uti and will be treated for that. She has been accepted by [facility] for admission - Diagnoses Provider Diagnoses: Near syncope, Dementia Discharge - Discharge Plan Condition: Improved Disposition: ADMITTED TO [facility] The documentation as recorded by the Kamron nelson Michael accurately reflects the service I personally performed and the decisions made by me, Danelle Rajput MD.
== END 2017-01-21 16:35 | disposition home or self-care (01) ==
LOC: ED 15:02 → MEDTELE 17:19
PROVIDERS: ADMIT Internal Medicine; ATTEND Internal Medicine
DX: R55 Syncope and collapse (principal); F03.90 Unspecified dementia, unspecified severity, without behavioral disturbance, psychotic disturbance, mood disturbance, and anxiety; N39.0 Urinary tract infection, site not specified; I48.91 Unspecified atrial fibrillation; I50.40 Unspecified combined systolic (congestive) and diastolic (congestive) heart failure; Z95.0 Presence of cardiac pacemaker; F32.9 Major depressive disorder, single episode, unspecified; F41.9 Anxiety disorder, unspecified; F43.10 Post-traumatic stress disorder, unspecified; Z95.2 Presence of prosthetic heart valve; Z79.899 Other long term (current) drug therapy; I51.7 Cardiomegaly; S06.9X9A Unspecified intracranial injury with loss of consciousness of unspecified duration, initial encounter; S20.221A Contusion of right back wall of thorax, initial encounter; W18.30XA Fall on same level, unspecified, initial encounter; Y92.012 Bathroom of single-family (private) house as the place of occurrence of the external cause; I25.5 Ischemic cardiomyopathy; I10 Essential (primary) hypertension; Z95.810 Presence of automatic (implantable) cardiac defibrillator; K82.9 Disease of gallbladder, unspecified
CPT/HCPCS: 36415; 70450; 71010; 80048; 80053; 81003; 81015; 83605; 83735; 84443; 84484; 85025; 87086; 93005; 93306; 96365; 96372; 99283; A9270-GY; G0378; G8978-GP-CH; G8979-GP-CH; G8980-GP-CH; J0696; J1644

== ENCOUNTER → 2018-01-14 09:44 | Day surgery (SDC) | payer MEDICARE, MEDICAID ==
[~2018-01-14 09:44] MED LIST: Lidocaine 1% INJ* 10 MG/ML 30 ML SDV ONE; Midazolam* 1 MG/ML 10 ML VIAL (10 MG) ONE; ceFAZolin 1 GM VIAL(*) 2 GM in NS 0.9% 50 ML* 50 ML IVPB ONE; ceFAZolin VIAL 1 GM in NS *SYRINGE * * 10 ML ONE; fentaNYL* 50 MCG/ML 2 ML VIAL (100 MCG VIAL) ONE
--- NOTE | 2018-01-15 16:36 | OP ---
CC: Dr. Dominguez * DATE OF OPERATION: 01/14/18 - [facility] CATH DATE OF : 39 SURGEON: Freddie Ramsey M.D. ANESTHESIA: Local anesthesia with conscious sedation. PRE-OP DIAGNOSIS: Complete heart block, pacemaker at elective replacement indicator. POST-OP DIAGNOSIS: Complete heart block, pacemaker at elective replacement indicator. OPERATIVE PROCEDURE: Dual chamber pacemaker generator change. ESTIMATED BLOOD LOSS: Nil. COMPLICATIONS: None. INDICATIONS: The patient is an 82-year-old female with a history of complete heart block, history of pacemaker implantation. She has been followed by Dr. Dominguez. The patient's pacemaker has reached elective replacement indicator and generator change was recommended. DESCRIPTION OF PROCEDURE: The patient was brought to the operating room in a fasting state. Informed consent had been obtained prior to the procedure. All labs were reviewed. The patient was placed supine on the procedure table. Her left deltopectoral area was cleaned and draped in the usual fashion. 1% lidocaine was used for local anesthesia. A 4-cm incision was made above the previous incision line and blunt dissection was carried down to the fiber sheath. The fiber sheath was opened and the pacemaker was removed. The patient had the pacemaker detached from the atrial and ventricular leads. The atrial and ventricular leads were tested. The removed device is a Medtronic model FEDR-01, serial number [id number]. The right ventricular lead had an impedance of 1107 Ohms, R waves could not be tested as the patient is a pacemaker dependent, threshold 0.6 volts at 0.5 milliseconds. The atrial lead had a P-wave sensitivity of 0.721 millivolts, impedance 774 Ohms, and an atrial threshold of 0.7 volts at 0.5 milliseconds. The pocket was flushed with antibiotic-infused normal saline. A new generator was attached appropriately to the atrial and ventricular lead. The generator is a MedUltromex model VEDR-01, serial number [id number]. The device was placed in the pocket. The surgical incision was closed in 3 layers. The patient was returned to the holding area in stable condition. [id number]/[facility] #: [id number] MTDD
== END | disposition home or self-care (01) ==
LOC: CHICATH 09:44
PROVIDERS: ATTEND Specialist
DX: I44.2 Atrioventricular block, complete (principal); Z95.0 Presence of cardiac pacemaker; F03.90 Unspecified dementia, unspecified severity, without behavioral disturbance, psychotic disturbance, mood disturbance, and anxiety; I25.10 Atherosclerotic heart disease of native coronary artery without angina pectoris; Z95.1 Presence of aortocoronary bypass graft; Z88.1 Allergy status to other antibiotic agents; Z79.899 Other long term (current) drug therapy; Z87.891 Personal history of nicotine dependence
CPT/HCPCS: 33228; 88300; C1785; J0690; J2250; J3010